=== PATIENT | male | born 1965 | race Caucasian/White ===

== ENCOUNTER 2016-11-04 17:56 | Emergency (ER) | payer MEDICAID ==
[~2016-11-04] VITALS: Ht 180.3 cm; Wt 64.0 kg
[2016-11-04] MEDS ORDERED: LIDOCAINE 1%, 20ML ONE (18:05)
[2016-11-04] MEDS ORDERED: BUPIVACAINE 0.25% ONE (18:05)
[2016-11-04] MEDS ORDERED: DIPH,PERTUSS(ACELL),TET VAC/PF 0.5 ML IM-VACC ONE ×2 (18:06→18:30)
[2016-11-04 18:15] VITALS: BP 156/92
[2016-11-04] MEDS ORDERED: BUPIVACAINE/PF-EPI 0.25% 1:200K SQ ONE (18:30)
[2016-11-04] MEDS ORDERED: CEFAZOLIN 1,000 MG IM ONE (18:30)
[2016-11-04] MEDS ORDERED: LIDOCAINE 1%, 20ML SQ ONE (18:30)
[2016-11-04] MEDS ORDERED: CEFAZOLIN 1,000 MG ONE (18:32)
== END 2016-11-04 21:07 | disposition home or self-care (01) ==
LOC: ED 19:46
DX: S62.667B Nondisplaced fracture of distal phalanx of left little finger, initial encounter for open fracture (principal); W23.0XXA Caught, crushed, jammed, or pinched between moving objects, initial encounter; Y93.89 Activity, other specified; Y92.89 Other specified places as the place of occurrence of the external cause; Y99.8 Other external cause status; Z23 Encounter for immunization; Z59.0 Homelessness
CPT/HCPCS: 64450; 73140; 90471; 90715; 96372; 99284; J0690

== ENCOUNTER 2016-11-29 10:13 | Emergency (ER) | payer MEDICAID ==
[~2016-11-29] VITALS: Ht 180.3 cm; Wt 60.6 kg
[2016-11-29 10:33] VITALS: BP 122/87
== END 2016-11-29 11:32 | disposition left against medical advice (07) ==
LOC: ED 11:26
DX: R11.0 Nausea (principal); M79.646 Pain in unspecified finger(s)